=== PATIENT | male | born 2000 | race Caucasian/White ===

== ENCOUNTER 2020-12-22 10:07 | Outpatient (CLI) | payer OTHER, SELFPAY ==
--- NOTE | 2020-12-22 10:15 | MR_ITS ---
WS: [id number] MRI RIGHT KNEE HISTORY: RT KNEE PAIN, prior history of LCL repair. COMPARISON: None available. Anterior cruciate ligament: Mild intrasubstance degeneration in the proximal ACL. No tear. Posterior cruciate ligament: Intact. Medial collateral ligament: Intact. Posterior lateral corner structures: Mild thickening along the lateral collateral ligament. There is a small amount of increased signal within the distal ligament. Normal signal involving the biceps fem romy tendon at the fibular head. Medial menisci: Intact. Normal signal, size and shape. Lateral meniscus: Intact. Normal signal, size and shape. Extensor mechanism: Distal quadriceps tendon and patellar tendons are intact. Fluid and soft tissue: No joint effusion. Very tiny Gallardo's cyst. Osseous and articular structures: Patellofemoral compartment: Very small amount of contusion type injury involving the medial patellar facet. No marrow edema. Medial compartment: Normal. Lateral compartment: There is an osteochondral lesion extending into the lateral femoral condyle dist al from the weightbearing surface which may be from prior trauma or surgery. There is also a screw in serted into the fibular head from the prior lateral collateral ligament repair. MR/MR knee RT wo con* [id number] IMPRESSION: 1. Status post lateral collateral ligament repair. There is a small amount of increased signal and thickening involving the lateral collateral ligament. Ther e is a small amount of fluid within the ligament just superior to the fibular h ead. The biceps femoris tendon appears intact. Partial re-tear of the lateral c ollateral ligament is not excluded. 2. No meniscal tear. 3. No marrow edema or fracture. 4. No joint effusion.
== END 2020-12-22 10:08 | disposition home or self-care (01) ==
PROVIDERS: PCP Family Medicine; Visit Provider Family Medicine
DX: M25.561 Pain in right knee (principal); Z98.890 Other specified postprocedural states
CPT/HCPCS: 73721